=== PATIENT | male | born 1995 | race Two or more races ===

== ENCOUNTER 2022-08-28 10:23 | Emergency (ER) | payer OTHER ==
[~2022-08-28] VITALS: Ht 170.2 cm; Wt 59.0 kg
== END 2022-08-28 13:33 | disposition home or self-care (01) ==
LOC: ER 10:23
DX: S99.922A Unspecified injury of left foot, initial encounter (principal); V03.00XA Pedestrian on foot injured in collision with car, pick-up truck or van in nontraffic accident, initial encounter; Y93.89 Activity, other specified; Y92.413 State road as the place of occurrence of the external cause